=== PATIENT | female | born 1995 | race Hispanic/Latino ===

== ENCOUNTER 2023-05-24 05:00 | Inpatient (IN) | payer MEDICAID, OTHER, SELFPAY ==
[2023-05-24] MEDS ORDERED: Promethazine HCl 25 MG/ML VIAL IM PRN (23:09)
[2023-05-24] MEDS ORDERED: Misoprostol 100 MCG TAB VAG PRN (23:09)
[2023-05-24] MEDS ORDERED: fentaNYL 50 mcg/mL 1 mL Vial SLOW IVP PRN (23:09)
[2023-05-24] MEDS ORDERED: Misoprostol 200 MCG TAB PR PRN (23:09)
[2023-05-24] MEDS ORDERED: Acetaminophen 500 MG TAB PO PRN (23:09)
[2023-05-24] MEDS ORDERED: Ondansetron PF 4 MG/2 ML Vial IVP PRN (23:09)
[2023-05-24] MEDS ORDERED: Lidocaine 1% (PF) 30 ML VIAL SC PRN (23:09)
[2023-05-24] MEDS ORDERED: Tranexamic Acid 1,000 MG/10 ML VIAL IVP PRN (23:09)
[2023-05-24] MEDS ORDERED: hydrALAZINE 20 MG/ML VIAL SLOW IVP PRN (23:09)
[2023-05-24] MEDS ORDERED: Carboprost 250 MCG/ML AMP IM PRN (23:09)
[2023-05-24] MEDS ORDERED: Diphenoxylate HCl/Atropine Tablet PO PRN (23:09)
[2023-05-24] MEDS ORDERED: Methylergonovine 0.2 MG/ML VIAL IM PRN (23:09)
[2023-05-24] MEDS ORDERED: Ibuprofen 800 MG TAB PO PRN (23:09)
[2023-05-24] MEDS ORDERED: Oxytocin 30 units/NS 500 ML 500 ML IV SCH ×2 (23:15→23:30)
[2023-05-24 23:18] VITALS: BMI 27.8
[2023-05-25 00:05] LABS: Hematocrit 38.5 % (34.9-44.5); Hemoglobin 12.8 g/dL (12.0-15.5); Mean Corpuscular HGB CONC 33.2 g/dL (32.0-36.0); Mean Corpuscular Hemoglobin 28.4 pg (27.0-33.0); Mean Corpuscular Volume 85.4 fl (81.6-98.3); Mean Platelet Volume 13.2 fl (7.4-10.4); Platelet Count 197 10x3/uL (150-450); RBC Distribution Width 14.2 % (11.5-14.5); Red Blood Cell (RBC) Count 4.51 10x6/uL (3.90-5.03); Syphilis Antibody Nonreactive (Nonreactive); Syphilis Antibody Index 0.02 S/CO (<1.00 Non-Reactive); White Blood Cell (WBC) Count 9.2 10x3/uL (3.5-10.5)
[2023-05-25 00:06] LABS: HBSAg Index 0.13 S/CO (0-0.99); Hep B Surf Ag - L&D Non-Reactive S/CO (NonReactive)
[2023-05-25 04:28] LABS: Bilirubin Neg (Negative); Blood, Urine Negative (Negative); Clarity Clear (Clear); Glucose, Urine (Dipstick) Normal (Negative); Ketone, Urine Negative (Negative); Leukocyte Negative (Negative); Nitrite Negative (Negative); Protein, Urine (Dipstick) Negative (Neg-Trace); Urobilinogen Normal mg/dL (Less than 2)
[2023-05-25 04:49] LABS: Bacteria/HPF None Seen HPF (None Seen); CAUTI Indications for Culture Pregnancy; RBC/HPF None Seen HPF (0-3); WBC/HPF 0-3 HPF (0-3)
[2023-05-25 04:50] LABS: Urine Culture Reflex Yes Yes
[2023-05-25] MEDS: Lactated Ringer's 1,000 ML IV SCH (11:30)
[2023-05-26] MEDS ORDERED: fentaNYL 50 mcg/mL 1 mL Vial SLOW IVP PRN ×2 (00:09→11:12)
[2023-05-26] MEDS ORDERED: fentaNYL/Ropivacaine Epidural 100 ML ONE (01:50)
[2023-05-26] MEDS ORDERED: Naloxone HCl 0.4 mg/ml Vial IVP PRN ×4 (02:47→11:12)
[2023-05-26] MEDS ORDERED: Ondansetron PF 4 MG/2 ML Vial IVP PRN ×3 (02:47→11:12)
[2023-05-26] MEDS ORDERED: Acetaminophen 325 MG TAB PO PRN ×2 (02:47→14:14)
[2023-05-26] MEDS ORDERED: diphenhydrAMINE 50 MG/ML VIAL IVP PRN ×2 (02:47→11:12)
[2023-05-26] MEDS ORDERED: Moisturizing Cream (Eucerin) 113 GM JAR TOP PRN ×2 (02:47→11:12)
[2023-05-26] MEDS ORDERED: ePHEDrine Sulfate 50 MG/10 ML VIAL SLOW IVP PRN (02:47)
[2023-05-26] MEDS ORDERED: Lactated Ringer's 500 ML IV PRN (02:47)
[2023-05-26] MEDS ORDERED: Promethazine HCl 25 MG/ML VIAL IM PRN ×2 (02:47→11:12)
[2023-05-26] MEDS ORDERED: fentaNYL 2 mcg/Ropivacaine 0.2% Epidural 100 ML CADD EPIDURAL SCH (03:00)
[2023-05-26] MEDS ORDERED: Communication Order-Pharmacy FS SCH (03:00)
[2023-05-26] MEDS ORDERED: Azithromycin 500 MG VIAL ONE (08:19)
[2023-05-26] MEDS ORDERED: CEFAZOLIN 2 GM VIAL ONE (08:19)
[2023-05-26] MEDS ORDERED: Bicitra 30 ML UDCUP PO PRN (08:36)
[2023-05-26] MEDS ORDERED: Famotidine/PF 20 mg/2ml Vial SLOW IVP PRN (08:36)
[2023-05-26] MEDS ORDERED: Azithromycin 500 MG in Sodium Chloride 0.9% 250 ML 250 ML IVPB SCH (08:45)
[2023-05-26] MEDS ORDERED: CEFAZOLIN 2 GM in Sodium Chloride 0.9% 100 ML IVPB SCH (08:45)
[2023-05-26] MEDS ORDERED: Oxytocin 10 UNITS/ML VIAL ONE (09:56)
[2023-05-26] MEDS ORDERED: Dexamethasone 4 mg/ml Vial ONE (09:56)
[2023-05-26] MEDS ORDERED: Ondansetron PF 4 MG/2 ML Vial ONE (09:56)
[2023-05-26] MEDS ORDERED: Ketorolac Tromethamine 30 MG/ML VIAL ONE (09:56)
[2023-05-26] MEDS ORDERED: Lidocaine 2% MPF 10 ML AMP (For Epidural Use) ONE ×2 (09:57→10:16)
[2023-05-26] MEDS ORDERED: fentaNYL 50 mcg/mL 1 mL Vial ONE (10:15)
[2023-05-26] MEDS ORDERED: Succinylcholine 200 MG/10 ml SYRINGE FS ONE (10:21)
[2023-05-26] MEDS ORDERED: PROPOFOL 20 ML ONE (10:21)
[2023-05-26] MEDS ORDERED: Morphine PF 10 MG/10 ML VIAL ONE (10:37)
[2023-05-26 10:45] LABS: RapidComm Collect By CBN; pH (Cord, venous) 7.302 (7.250-7.350)
[2023-05-26] MEDS ORDERED: Erythromycin Base 0.5% Oint 1 GM TUBE ONE (10:46)
[2023-05-26] MEDS ORDERED: Phytonadione Neonatal 1 MG/0.5 ML AMP ONE (10:46)
[2023-05-26] MEDS ORDERED: Hepatitis B Vaccine 10 MCG/0.5 ML SYR ONE (10:48)
[2023-05-26] MEDS ORDERED: PHENYLEPHRINE-NS 100 MCG/ML 10 ML SYRINGE ONE (10:54)
[2023-05-26] MEDS ORDERED: Promethazine HCl 25 MG SUPP PR PRN (11:12)
[2023-05-26] MEDS ORDERED: Naloxone HCl 0.4 mg/ml Vial IV PRN (11:12)
[2023-05-26] MEDS ORDERED: Meperidine HCl/PF 25 MG/ML VIAL SLOW IVP PRN (11:12)
[2023-05-26] MEDS ORDERED: Communication Order-Pharmacy FS PRN (11:15)
[2023-05-26] MEDS ORDERED: Ketorolac Tromethamine 30 MG/ML VIAL IVP SCH (11:15)
[2023-05-26] MEDS ORDERED: Simethicone Chewable 80 MG TAB PO PRN (14:14)
[2023-05-26] MEDS ORDERED: Bisacodyl 10 MG SUPP PR PRN (14:14)
[2023-05-26] MEDS ORDERED: Boostrix 0.5 ML (Tdap) VIAL (>/=7 yrs of age) IM ONE (14:14)
[2023-05-26] MEDS ORDERED: Misoprostol 200 MCG TAB PR PRN (14:14)
[2023-05-26] MEDS ORDERED: hydrALAZINE 20 MG/ML VIAL SLOW IVP PRN (14:14)
[2023-05-26] MEDS ORDERED: Methylergonovine 0.2 MG/ML VIAL IM PRN (14:14)
[2023-05-26] MEDS ORDERED: Lanolin Ointment 7 GM TUBE TOP PRN (14:14)
[2023-05-26] MEDS: Misoprostol 100 MCG TAB VAG SCH ×2 (14:25→14:48)
[2023-05-26] MEDS: Lactated Ringer's 1,000 ML IV SCH ×2 (14:48→14:49)
[2023-05-26] MEDS ORDERED: Bupivacaine PF 0.5% 30 ML VIAL ONE (15:00)
[2023-05-26] MEDS: Ketorolac Tromethamine 30 MG/ML VIAL IVP SCH (17:08)
[2023-05-26] MEDS: Ferrous Sulfate 325 MG TAB PO SCH (23:25)
[2023-05-27] MEDS: Ketorolac Tromethamine 30 MG/ML VIAL IVP SCH ×3 (00:14→13:21)
[2023-05-27 04:39] LABS: Hematocrit 33.3 % (34.9-44.5); Hemoglobin 11.3 g/dL (12.0-15.5); Mean Corpuscular HGB CONC 33.9 g/dL (32.0-36.0); Mean Corpuscular Volume 85.6 fl (81.6-98.3); Mean Platelet Volume 13.1 fl (7.4-10.4); Platelet Count 165 10x3/uL (150-450); RBC Distribution Width 14.1 % (11.5-14.5); Red Blood Cell (RBC) Count 3.89 10x6/uL (3.90-5.03); White Blood Cell (WBC) Count 13.7 10x3/uL (3.5-10.5)
[2023-05-27] MEDS: Ferrous Sulfate 325 MG TAB PO SCH (07:16)
[2023-05-27] MEDS: Polyethylene Glycol 3350 17 GM Packet PO SCH (08:05)
[2023-05-27] MEDS: Prenatal Vitamin 1 TAB PO SCH (08:05)
[2023-05-27] MEDS: HYDROcodone/Acetaminophen 5/325 mg Tablet PO PRN ×4 (08:05→21:08)
[2023-05-27] MEDS: Ibuprofen 800 MG TAB PO SCH ×2 (13:56→21:07)
[2023-05-28] MEDS: Ibuprofen 800 MG TAB PO SCH (05:36)
[2023-05-28] MEDS: HYDROcodone/Acetaminophen 5/325 mg Tablet PO PRN ×2 (05:39→11:27)
[2023-05-28] MEDS: Ferrous Sulfate 325 MG TAB PO SCH ×2 (07:42→08:44)
[2023-05-28] MEDS: Prenatal Vitamin 1 TAB PO SCH (08:49)
[2023-05-28] MEDS: Polyethylene Glycol 3350 17 GM Packet PO SCH (08:50)
[2023-05-28 11:48] VITALS: BP 107/64; TEMP 97.6
== END 2023-05-28 14:10 | disposition home or self-care (01) | DRG 788 ==
LOC: CSHLD 21:43 → CSHPP 05-26 13:45
PROVIDERS: ADMIT Family Medicine; ATTEND Family Medicine
PROC: 10D00Z1 Extraction of Products of Conception, Low, Open Approach (ICD-10-PCS; principal; 2023-05-26)
PROC: 10907ZC Drainage of Amniotic Fluid, Therapeutic from Products of Conception, Via Natural or Artificial Opening (ICD-10-PCS; 2023-05-26)
PROC: 3E0P7VZ Introduction of Hormone into Female Reproductive, Via Natural or Artificial Opening (ICD-10-PCS; 2023-05-26)
PROC: 4A043R1 Measurement of Venous Saturation, Peripheral, Percutaneous Approach (ICD-10-PCS; 2023-05-26)
PROC: 3E033XZ Introduction of Vasopressor into Peripheral Vein, Percutaneous Approach (ICD-10-PCS; 2023-05-26)
DX: O99.02 Anemia complicating childbirth (principal); Z3A.40 40 weeks gestation of pregnancy; Z37.0 Single live birth; O48.0 Post-term pregnancy
CPT/HCPCS: 36415; 51702; 81001; 82805; 85027; 86780; 86850; 86900; 86901; 87086; 87340; J0456; J1100; J1650; J1885; J2274; J2405; J2590; J2704; J3010; J7120; S0020